=== PATIENT | male | born 1945 | race Caucasian/White ===

== ENCOUNTER 2018-05-17 08:30 | Outpatient (RCR) | payer MEDICARE, BC, SELFPAY ==
--- NOTE | 2018-05-12 09:17 | HP.PTEVAL_ITS ---
Patient's Visit Information DWAYNE DELAROSA is a 72 year old M referred to Physical Therapy by Jose Carney MD with a diagnosis of BPPV. Date of Evaluation: 05/12/18 Physical Therapist: Jose Casillas DPT, OC - Visit Plan Frequency: 1x/Week Duration: 2-4 Weeks Plan: weekly as needed for positional treatments and ex for BPPV 2-4 weeks. - Subjective Subjective: Had flu in December and started with some dizzyness and eye movement. Feels it at home if moves head or lies down feels like a quick shutter of spinning. Still has it daily lying down. 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 still does job but fell early on into hole. Activities at home are normal. Sleep is good as it only lasts for a quick moment. - Objective Walks easily and safely. C/S AROM WNL. - L hallpike. + R hallpike for quick up torsional nystagmus of 2-3 second duration. Treated with R Jenifer and then a negative test today. - Goals Goal 1:: Abolish dizzyness in bed adn looking up Goal Time Frame: 2-4 Weeks Goal 2:: pt feel 100% back to normal Goal Time Frame: 4-6 Weeks - Rehabilitation Potential Physical Therapy Diagnosis: R post canal BPPV Rehabilitation Potential: Fair - Anticipated Interventions Patient/Client Instruction: Educate patient on: Condition Other: to manage dizzyness Comment: positional treatments and ex as needed. Other: to abolish dizzyness. Thank you for the opportunity to evaluate your patient. For Medicare and Medicare HMO plans, please review the plan of care and approve it. It will need to be FAXED BACK to us at [phone] for Medicare purposes. Please let me know if there are questions or concerns regarding this plan of care. Physician Signature: Date:
--- NOTE | 2018-05-30 12:01 | HP.PT.NRP ---
HP - Discharge Summary (1) - Patient Information DWAYNE DELAROSA was seen in my office for initial evaluation on 05/12/18. The following Plan of Care was established for this patient: Initial Frequency: 1x/Week Initial Duration: 2-4 Weeks - Anticipated Interventions Patient/Client Instruction: Educate patient on: Condition Other: to manage dizzyness Other: to abolish dizzyness. This patient was last seen in our office 05/17/18. Pertinent comments regarding their Physical therapy will appear below: Pt seen 2 visits for positinal treatments. He was to f/u two weeks later but has called to cancel stating he is feeling good and doctor said he is fine. Will discontinue at his request. At this point I will be discontinuing this patient from physical therapy. I would be happy to see this patient again in the future if found appropriate by the physician. Thank you! Jose Casillas, DPT, OC
== END 2018-05-17 19:00 | disposition home or self-care (01) ==
LOC: PT 08:30
PROVIDERS: Family Provider Family Medicine; PCP Family Medicine; Visit Provider Otolaryngology
DX: H81.10 Benign paroxysmal vertigo, unspecified ear (principal)
CPT/HCPCS: 97161; 97530

== ENCOUNTER 2023-03-05 13:18 | Emergency (ER) | payer BC, SELFPAY ==
[2023-03-05 13:19] VITALS: BP 176/86; PULSE 76; RESP 16; TEMP 36.2; O2SAT 98; BMI 31.6
--- NOTE | 2023-03-05 13:27 | EX.ED.DYSGE1 ---
HPI <NEL Abdul - Last Filed: 03/05/23 14:57> History of Present Illness Chief Complaint: Allergic Reaction Narrative Narrative: Patient is a 77-year-old male with history of hyperlipidemia and history of anaphylaxis with bee stings presents the emergency department after being stung by a hornet. Patient was stuck on his right index finger. He states within 10 minutes he felt tingly, he felt tingling in his face, and he was concerned and came to the emergency department. He does have EpiPen's however secondary to it being he did not take it. Patient denies any swelling in his mouth, shortness of breath. Patient is here with his for evaluation [facility] <NEL Abdul - Last Filed: 03/05/23 14:57> [facility] Medical History (Updated 03/05/23 @ 14:55 by NEL Abdul) Hyperlipidemia Home Medications atorvastatin 80 mg tablet 80 mg PO DAILY 03/05/23 [History Last Taken Unknown] epinephrine 0.3 mg/0.3 mL injection, auto-injector (EpiPen 2-Rigoberto) 0.3 mg (0.3 mL) IM Q4H PRN anaphylaxis #2 ea 03/05/23 [Rx Last Taken Unknown] Allergy/AdvReac Type Severity Reaction Status Date / Time bee venom protein (honey bee) Allergy Anaphylaxis Verified 03/05/23 13:19 [bees] Social History Smoking Status: Never smoker ROS <NEL Abdul - Last Filed: 03/05/23 14:57> ROS ED ROS Narrative Constitutional: Negative for fever, chills, weight loss, weakness Eyes: Negative for vision loss, vision change, double vision ENT: Negative for any sore throat, ear pain, congestion Cardiovascular: Negative for any chest pain, tightness, palpitations Respiratory: Negative for any cough, sputum production, hemoptysis, dyspnea, dyspnea on exertion, orthopnea Gastrointestinal: Negative for any abdominal pain, nausea, vomiting, diarrhea, constipation, blood in stool, blood in vomit : Negative for any urinary frequency, dysuria, retention, blood in urine Muscle skeletal: Negative for any muscle joint pain, stiffness, myalgias, arthralgias, neck pain, back pain Neurological: Negative for any headache, syncope, numbness dizziness. Positive for tingling throughout body Skin: Negative for any rashes, lumps, abrasions, lacerations. Positive feeling of itchiness Psychiatric: Negative for any depression, anxiety, stress, suicidal ideation, homicidal ideation Hematologic: Negative for any easy bruising, excessive bruising, easy bleeding Allergies: Negative for any eczema, hives, rash EXAM <Ted Pink [employer] - Last Filed: 03/05/23 14:57> Physical Exam Narrative Exam Narrative: Vital signs reviewed. HEET: Head normocephalic atraumatic, TMs clear bilaterally. Posterior pharynx is clear, moist mucous membranes. Nares clear bilaterally. Negative for any posterior or anterior pharynx swelling. Patient speaking complete sentences. Patient's tongue is normal size, uvula is normal, no deviation. Negative for any trismus. Negative for any change in voice. Neck: Supple with no lymphadenopathy or tenderness. No signs of meningismus, negative jolt sign. Negative for any signs of swelling. Cardiac: Regular rate and rhythm no murmurs gallops or rubs, equal peripheral pulses bilaterally. Respiratory: Lungs clear to auscultation bilaterally. No chest tenderness. Abdomen: Soft, nontender, nondistended. No abdominal bruit or pulsatile masses. No hepatosplenomegaly Extremities: No peripheral edema, no signs of gross trauma or deformity. Active full range of motion of all extremities. Patient does have some erythema to the right index finger where the sting occurred, slight redness up the hand. No full body hives. Neuro: Cranial nerves II through XII intact, no focal neurological deficits. Skin: Clean dry and intact with no rash, purpura, petechiae, vesicles or pustules. Backs/flank: No CVA tenderness, no midline spinal tenderness, no deformity. Psych: Normal mood and affect. No SI, HI or acute psychosis. Const Vital Signs: 03/05/23 13:19 Temperature 97.2 F L Temperature Source Temporal Pulse Rate 76 Respiratory Rate 16 Blood Pressure 176/86 H Blood Pressure Mean 116 Pulse Ox 98 Oxygen Delivery Method Room Air Positive well nourished and well developed General Appearance ED: well developed <Dr. Jose Artis, DO - Last Filed: 03/05/23 13:59> Physical Exam Const Vital Signs: 03/05/23 13:19 Temperature 97.2 F L Temperature Source Temporal Pulse Rate 76 Respiratory Rate 16 Blood Pressure 176/86 H Blood Pressure Mean 116 Pulse Ox 98 Oxygen Delivery Method Room Air [facility] <NEL Abdul - Last Filed: 03/05/23 14:57> [facility] Treatment and Re-Evaluation :: Patient appears generally well, patient appears nontoxic vital signs are stable. Patient presents to the emergency department concern for allergic reaction secondary to a hornet sting. He does have history of anaphylaxis from bee stings, however he does not appear to be having anaphylactic reaction on initial arrival. He is speaking normally, vital signs are stable, patient is calm and collected. Secondary to the patient having hives, feeling of itchiness, patient did have an IV established in case of anaphylaxis. Patient also received 1 L normal saline, 125 mg Solu-Medrol, Pepcid as well as 25 mg of Benadryl IV. Patient will be observed. After 2 hours, the patient was observed, patient still slight redness to the right index finger however there is no systemic symptoms. Patient's vital signs remained stable. He responded well to the medications. Patient overall feels well. At this time I feel comfortable patient be discharged. Patient would not be given any prescription medication. I will try to write him for an EpiPen with a refill. He is instructed to follow-up outpatient. He is happy with plan of care and is stable for discharge. <Dr. Jose Artis, - Last Filed: 03/05/23 13:59> [facility] Narrative Medical decision making narrative: I have personally performed a face to face assessment of the patient and have reviewed the BRITANY Note. I performed a substantive portion of the visit including all aspects of the following. My martinez findings include: History: Patient presents after insect sting to his right index finger. Patient states he has a history of allergic reaction to yellowjacket stings. Patient thinks it may have been a wasp or yellowjacket that stung him today. Patient admits to some swelling and tingling to his right index finger where he was stung. Patient denies any difficulty breathing or difficulty swallowing. Patient denies any hives or urticaria. Exam: Vital signs are stable. Patient is afebrile. Patient is in no acute distress. Oral mucosa is pink and moist. Oropharynx is clear. Airway is patent. Neck is supple. Trachea is midline. There is no JVD or lymphadenopathy. There is some edema and mild erythema over the right index finger. There is good range of motion of the right index finger. Sensation was intact to light touch in all digits. Capillary refill was less than 2 seconds in all digits. Radial pulses are equal bilaterally. Medical Decision Making: Patient was advised that this is most likely a local reaction to an insect sting. Patient will be given Solu-Medrol, Benadryl, and Pepcid. Patient will be observed in the emergency department. Patient was instructed to keep the area clean and dry. Patient was instructed to follow-up with his primary care physician in 5 to 7 days. Patient was instructed use Benadryl as needed for any swelling or itching. Patient understood and was agreeable with the plan. All questions were answered. Discharge Plan Triage Chief Complaint: Allergic Reaction ED Midlevel Provider: Ted Pink ED Provider: Jose Artis Dx/Rx/DC Orders Clinical Impression: Accidental bee sting, Allergic reaction to bee sting Instructions: ED BEE STING General Allergic Rxn, Allergy Overview Prescriptions: New epinephrine [EpiPen 2-Rigoberto] 0.3 mg/0.3 mL auto-injector 0.3 mg IM Q4H PRN (Reason: anaphylaxis) Qty: 2 1RF No Action atorvastatin 80 mg tablet 80 mg PO DAILY Primary Care Provider: Abhijeet Auguste Referrals: Abhijeet Auguste MD [Primary Care Provider] - Disposition Disposition: Home, Self Care
[2023-03-05] MEDS: DiphenhydrAMINE 50 MG/ML Syringe 25 MG IV (13:36)
[2023-03-05] MEDS: MethylPREDNISolone 125 MG/2 ML Vial IV (13:36)
[2023-03-05] MEDS: 0.9% Normal Saline 1,000 ML 1000 ML IV (13:36)
[2023-03-05] MEDS: Famotidine 200 MG/20 ML MDV 20 MG in 0.9% Normal Saline (Pres. free 8 ML 300 MG IV (13:50)
[2023-03-05 15:01] VITALS: RESP 18
== END 2023-03-05 15:06 | disposition home or self-care (01) ==
PROVIDERS: Emergency Provider Emergency Medicine; PCP Family Medicine; Visit Provider Emergency Medicine
DX: T63.441A Toxic effect of venom of bees, accidental (unintentional), initial encounter (principal); E78.5 Hyperlipidemia, unspecified
CPT/HCPCS: 96361; 96374; 96375; 99282; J7030; A4216; J3490